=== PATIENT | male | born 1960 | race Two or more races ===

== ENCOUNTER 2017-12-28 03:48 | Emergency (ER) | payer OTHER ==
[~2017-12-28] VITALS: Ht 182.9 cm; Wt 81.6 kg
[2017-12-28] MEDS ORDERED: LEVSIN/SL0.125 MG PO (07:27)
[2017-12-28] MEDS ORDERED: SIMETHICONE125 M1 PO (07:27)
[2017-12-28] MEDS ORDERED: INTESTINEX680 M1 PO (07:27)
[2017-12-28] MEDS ORDERED: PEPCID AC20 MG PO (07:27)
== END 2017-12-28 18:47 | disposition home or self-care (01) ==
LOC: ER 03:48
DX: K30 Functional dyspepsia (principal)

== ENCOUNTER 2024-08-26 07:23 | Day surgery (SDC) | payer OTHER ==
[2024-08-20 09:09] LABS: HEMATOCRIT 41.4 % (39.0-48.0); HEMOGLOBIN 14.2 g/dL (13-16.00); MEAN CORPUSCULAR HEMOGLOBIN 30.8 pg (27.00-32.0); MEAN CORPUSCULAR HGB CONC 34.2 g/dl (32.0-36.0); PLATELET COUNT 283 K/uL (150-450); RED CELL DISTRIBUTION WIDTH 14.3 % (11.5-14.5)
[2024-08-20 09:25] LABS: URINE APPEARANCE Clear; URINE BILIRRUBIN Negative (NEGATIVE); URINE BLOOD Negative; URINE COLOR Yellow; URINE GLUCOSE Negative (NEGATIVE); URINE KETONE Negative (NEGATIVE); URINE LEUKOCYTE Negative; URINE NITRATE Negative; URINE PROTEIN Negative (NEGATIVE); URINE UROBILINOGEN 0.2 E.U./dl
[2024-08-20 09:28] LABS: PARTIAL THROMBOPLASTIN TIME 28.6 SECONDS (22.0-34.0); PROTHROMBIN TIME 10.9 SECONDS (9.0-11.5)
[2024-08-20 09:30] LABS: URINE RBC 16.3 uL (0.0-20.8)
[2024-08-20 09:56] LABS: URINE BACTERIA 2.4 uL (0.0-1933); URINE EPITHELIAL CELLS 0.3 uL (0.0-38.8); URINE WBC 0.4 uL (0.0-23.2)
[2024-08-20 10:03] LABS: ALBUMIN 4.4 gm/dL (3.4-5.0); BILIRUBIN TOTAL 1.78 mg/dL (0.3-1.2); CREATININE SERUM 0.67 mg/dL (0.70-1.30); GFR 120.19; POTASSIUM 5.04 mEq/L (3.5-5.1); TOTAL PROTEIN 7.4 gm/dL (6.4-8.2)
[~2024-08-26 07:23] MED LIST: CANDESARTAN CIL16 MG; ECOTRIN81 MG PO; EZALLOR SPRINKL20 MG PO; INTESTINEX680 M1 PO; LEVSIN/SL0.125 MG PO; OMEGA-31000 MG PO; PEPCID AC20 MG PO; SIMETHICONE125 M1 PO; TOPROL XL50 M1 PO; ZETIA10 MG PO
[2024-08-26] MEDS ORDERED: CEFAZOLIN SODIUM 1,000 MG VIAL ONE (08:51)
[2024-08-26] MEDS ORDERED: TRAMADOL HCL50 MG PO (10:03)
[2024-08-26] MEDS ORDERED: KETO10TA2 PO (10:03)
[2024-08-26] MEDS ORDERED: TYLENOL ARTHRI650 MG PO (10:03)
[2024-08-26] MEDS ORDERED: MIRALAX17 GM PO (10:03)
[2024-08-26] MEDS ORDERED: BUPIVACAINE HCL/MPF 0.5% 30ML VIAL ONE (10:33)
[2024-08-26] MEDS ORDERED: CEFAZOLIN SODIUM 1,000 MG VIAL IV ONE (11:15)
[2024-08-26] MEDS ORDERED: BUPIVACAINE HCL 30 ML VIAL IJ ONE (11:15)
[2024-08-26] MEDS ORDERED: SUGAMMADEX SODIUM 200 MG/2 ML VIAL IV ONE ×2 (11:19→11:45)
[2024-08-26] MEDS ORDERED: KETOROLAC TROMETHAMINE 30 MG VIAL ONE (11:19)
[2024-08-26] MEDS ORDERED: KETOROLAC TROMETHAMINE 30 MG VIAL IU ONE (11:30)
[2024-08-26] MEDS ORDERED: MORPHINE SULFATE 4 MG/ML VIAL IV ONE ×2 (12:20→12:50)
[2024-08-26] MEDS ORDERED: MORPHINE SULFATE 4 MG/ML CARTRIDGE IV ONE (13:45)
== END 2024-08-26 15:50 | disposition home or self-care (01) ==
LOC: CIR.AMB 07:23
PROVIDERS: ATTEND Surgery
DX: K40.90 Unilateral inguinal hernia, without obstruction or gangrene, not specified as recurrent (principal); K42.0 Umbilical hernia with obstruction, without gangrene; I10 Essential (primary) hypertension
CPT/HCPCS: 49650; 49592; C1781